=== PATIENT | female | born 1995 | race Caucasian/White ===

== ENCOUNTER 2021-08-12 03:04 | Emergency (ER) | payer BC ==
[~2021-08-12] VITALS: Ht 157.5 cm; Wt 95.3 kg
--- NOTE | 2021-08-12 03:20 | NUR ---
PT BIBS C/O NONRADIATING C/P SINCE 229 DESCRIBED "BURNING LIKE AN ICE CUBE". PAIN WAS UNPROVOKED WHILE PATIENT WAS LAYING DOWN. NO ASSOSCIATED N/V OR SOB. PT AWAKE AND ALERT X4 AMBULATORY WITH STEADY GAIT. PT CHANGED INTO A GOWN AND PLACED ON THE MONITOR AND ALL V/S STABLE.
--- NOTE | 2021-08-12 03:26 | NUR ---
EMBROIDERY PATTERNMAKER AT PT'S BEDSIDE
--- NOTE | 2021-08-12 03:35 | NUR ---
20G IV LINE ESTABLISHED AT [facility]. BLOOD DRAWN AND SENT TO LAB.
[2021-08-12 03:46] LABS: BASOPHILS # (AUTO) 0.1 K/uL (0.0-0.2); BASOPHILS % (AUTO) 0.5 % (0.0-2.0); EOSINOPHILS % (AUTO) 2.2 % (0.0-6.0); HEMATOCRIT 42 % (33-45); HEMOGLOBIN 13.8 g/dL (11.5-14.8); MEAN CORPUSCULAR HGB CONC 33 g/dl (31.0-36.0); MEAN CORPUSCULAR VOLUME 88 fL (82-100); MONOCYTES # (AUTO) 0.7 K/uL (0.1-1.30); MONOCYTES % (AUTO) 5.8 % (2.0-12.0); NEUTROPHILS # (AUTO) 8.8 K/uL (1.8-8.9); NEUTROPHILS % (AUTO) 68.5 % (43.0-81.0); PLATELET COUNT (AUTO) 466 K/uL (150-450); RED BLOOD CELL COUNT(AUTO) 4.77 MIL/uL (4.0-5.2); WHITE BLOOD COUNT (AUTO) 12.8 K/uL (4.3-11.0)
[2021-08-12] MEDS ORDERED: IV NS 0.9% 250 ML IV ONE (03:56)
[2021-08-12] MEDS ORDERED: IOHEXOL-350 100 ML VIAL IV ONE (03:56)
--- NOTE | 2021-08-12 04:00 | NUR ---
URINE COLLECTED AND SENT TO LAB
[2021-08-12 04:02] LABS: CALCIUM, SERUM 9.6 mg/dL (8.5-10.1); CREATININE 0.8 mg/dL (0.6-1.3); POTASSIUM 3.9 mmol/L (3.5-5.1)
--- NOTE | 2021-08-12 04:33 | NUR ---
PT TAKEN TO A RETURNED FROM CT
--- NOTE | 2021-08-12 04:40 | NUR ---
HTML WEB DEVELOPER AT BEDSIDE
--- NOTE | 2021-08-12 06:00 | NUR ---
Patient discharged to home in stable condition. Written and verbal after care instructions given. Patient verbalizes understanding of instruction. IV line removed and PT ambulatory with steady gait.
[2021-08-12 06:04] VITALS: BP 121/59
== END 2021-08-12 06:05 | disposition home or self-care (01) ==
LOC: ER 03:04
DX: R07.89 Other chest pain (principal); R00.2 Palpitations; Z87.09 Personal history of other diseases of the respiratory system; Z86.59 Personal history of other mental and behavioral disorders
CPT/HCPCS: 36415; 71045; 71275; 80048; 84703; 85025; 93005; 99285; J7050; Q9967